=== PATIENT | female | born 1975 | race Two or more races ===

== ENCOUNTER 2016-11-07 05:59 | Observation (INO) | payer MEDICAID, OTHER ==
[~2016-11-07] VITALS: Ht 157.5 cm; Wt 61.2 kg
[2016-11-07 06:36] LABS: Basophils # (auto) 0 uL; Basophils % (auto) 0.1 % (0.0-2.0); Eosinophils # (auto) 0 uL; Eosinophils % (auto) 0.2 % (0.0-7.0); Hematocrit 34.6 % (36.0-46.0); Hemoglobin 11.5 g/dL (12.2-16.2); Lymphocytes # (auto) 0.4 uL; Lymphocytes % (auto) 3.3 % (10.0-50.0); Mean Corpuscular Hemoglobin 31.5 pg (28.0-32.0); Mean Corpuscular Hgb Conc. 33.4 g/dL (32.0-36.0); Mean Corpuscular Volume 94.3 fL (80.0-100.0); Mean Platelet Volume 9.3 fL (7.4-10.4); Monocytes # (auto) 0.7 uL; Monocytes % (auto) 5.4 % (0.0-12.0); Neutrophils # (auto) 11.4 uL; Platelet Count (auto) 274 10^3/uL (140-450); Red Cell Distribution Width 12.9 % (11.6-16.0); SUSPECT VIEW TRANSMISSION; White Blood Cell 12.5 10^3/uL (4.4-10.8)
[2016-11-07 07:02] LABS: Albumin 3.1 g/dL (3.4-5.0); BUN/Creatinine Ratio 14.1; Calcium 8.4 mg/dL (8.5-10.1); Potassium 3.9 mmol/L (3.5-5.1)
[2016-11-07 07:05] LABS: Bilirubin, Total 0.7 mg/dL (0.2-1.0); Total Protein 7.5 g/dL (6.4-8.2)
[2016-11-07] MEDS ORDERED: MORPHINE SULFATE 4 MG/ML SYRG IV ONE (07:45)
[2016-11-07] MEDS ORDERED: ONDANSETRON HCL 4 MG/2 ML VIAL IV ONE (07:45)
[2016-11-07] MEDS ORDERED: SODIUM CHLORIDE 0.9% 1,000 ML IV ONE (07:45)
[2016-11-07] MEDS ORDERED: AZITHROMYCIN 500MG/D5W 250ML 250 ML IV ONE (08:45)
[2016-11-07] MEDS ORDERED: cefTRIAXone 1GM/50ML D5W 50 ML IV ONE (08:45)
[2016-11-07 09:12] LABS: Urine Bilirubin Negative (Negative); Urine Blood TRACE /uL (Negative); Urine Color Yellow (Yellow); Urine Glucose Normal (Normal); Urine Ketone Negative (Negative); Urine Mucus FEW (None Seen); Urine Nitrite Negative (Negative); Urine RBC 13 /hpf (0 - 4); Urine Squamous Epithelial Cell FEW /hpf (<5)
[2016-11-07 10:13] VITALS: BP 105/44
[2016-11-07] MEDS ORDERED: NALBUPHINE HCL 10 MG/1ml INJECTION IV ONE (10:15)
[2016-11-07] MEDS ORDERED: ACETAMINOPHEN 325 MG TAB PO ONE (10:15)
== END 2016-11-07 11:37 | disposition home or self-care (01) | DRG 139 ==
LOC: EDBD 05:59 → ER 05:59 → OVERFLOW 07:58
PROVIDERS: ADMIT Emergency Medicine; ATTEND Emergency Medicine
DX: J18.9 Pneumonia, unspecified organism (principal)
CPT/HCPCS: 36415; 71010; 74176; 80053; 81001; 82150; 83605; 83690; 84702; 85025; 87040; 96361; 96365; 96366; 96368; 96375; 99285; G0378; J0456; J0696; J2270; J2300; J2405; J7030